=== PATIENT | male | born 1955 | race African-American/Black ===

== ENCOUNTER 2017-08-08 17:54 | Emergency (ER) | payer OTHER ==
[~2017-08-08] VITALS: Ht 188 cm; Wt 89.8 kg
[2017-08-08] MEDS ORDERED: PERCOCET 5-3251 EACH ORAL (18:36)
--- NOTE | 2017-08-08 18:43 | Emergency Room Report ---
History of Present Illness General Chief Complaint: Pain Source: Patient Present Illness HPI 62-year-old male history of hypertension diabetes, presenting with right knee pain. Patient states that he has had chronic knee pain for quite sometime, walks with a walker, states that for the last week his right knee has been painful, does not have any pain medications at home. Denies any new trauma. Patient has still been able to ambulate with his walker. No other complaints Allergies: Coded Allergies: No Known Allergies (Unverified , 08/08/17) Patient History Past Medical History: see triage record Past Surgical History: none Pertinent Family History: none Reviewed Nursing Documentation: PMH: Agreed, PSxH: Agreed Nursing Documentation-PMH Past Medical History: No History, Except For Hx Hypertension: Yes Hx Asthma: Yes Review of Systems All Other Systems: negative except mentioned in HPI Physical Exam Vital Signs Date Time Temp Pulse Resp B/P (MAP) Pulse Ox O2 Delivery O2 Flow Rate FiO2 08/08/17 17:47 98.1 78 18 149/90 99 Room Air Sp02 EP Interpretation: reviewed, normal General Appearance: other - Disheveled middle-aged male, appears to be in some pain, or speaking complete sentences Head: normocephalic, atraumatic Eyes: bilateral eye normal inspection, bilateral eye PERRL, bilateral eye EOMI ENT: normal ENT inspection, normal pharynx, normal voice, moist mucus membranes Neck: normal inspection, full range of motion, supple Respiratory: normal inspection, lungs clear, normal breath sounds, no respiratory distress, no retraction, no wheezing, speaking full sentences, chest symmetrical Cardiovascular #1: normal inspection, regular rate, rhythm, normal capillary refill Cardiovascular #2: 2+ radial (R), 2+ radial (L) Gastrointestinal: normal inspection, non tender, soft, non-distended, no guarding Musculoskeletal: other - Bilateral knee, no warmth, no effusion, mildly tender to palpation, full range of motion, able to walk with a slow gait with a walker , able to bear weight on both legs Neurologic: normal inspection, alert, oriented x3, responsive, motor strength/ tone normal, sensory intact, normal gait, speech normal Psychiatric: normal inspection, judgement/insight normal, memory normal Skin: normal inspection, normal color, no rash, warm/dry, well hydrated, normal turgor Medical Decision Making Diagnostic Impression: Primary Impression: Chronic knee pain ER Course 62 yo M with chronic knee pain p/w knee pain DDX: chronic knee pain no acute trauma no signs of septic joint ambulating Plan paincontrol ER course: nd during ED stay ambulating with his walker without difficulty feels better with meds Dispo DCed home with pmd fu Last Vital Signs Date Time Temp Pulse Resp B/P (MAP) Pulse Ox O2 Delivery O2 Flow Rate FiO2 08/08/17 17:47 98.1 78 18 149/90 99 Room Air Disposition: HOME, SELF-CARE Scripts Oxycodone/Acetaminophen 5-325* (PERCOCET 5-325 MG TABLET*) 1 Each Tablet 1 TAB ORAL Q4H Y for For Pain, #15 TAB 0 Refills Prov: Avis Candelaria M.D. 08/08/17 Patient Instructions: Knee Pain, Chronic Pain Avis Candelaria M.D. Aug 08, 2017 18:43
[2017-08-08] MEDS ORDERED: oxyCODONE HCL/Acetaminophen 5/325mg ORAL ONE (18:45)
[2017-08-08 18:56] VITALS: BP 149/90
[2017-08-08 19:07] VITALS: BP 149/90
== END 2017-08-08 19:07 | disposition home or self-care (01) ==
LOC: EDBD 17:54 → EMR 18:30
DX: M25.561 Pain in right knee (principal); G89.29 Other chronic pain; E11.9 Type 2 diabetes mellitus without complications; I10 Essential (primary) hypertension; J45.909 Unspecified asthma, uncomplicated
CPT/HCPCS: 99283